=== PATIENT | female | born 1990 | race Caucasian/White ===

== ENCOUNTER 2024-11-06 23:50 | Emergency (ER) | payer SELFPAY ==
[2024-11-07] MEDS ORDERED: DIPHENHYDRAMINE 50 MG/ML VIAL ONE (00:40)
[2024-11-07] MEDS ORDERED: KETOROLAC 30 MG/ML INJ ONE (00:40)
[2024-11-07 00:41] LABS: Absolute Basophils 0.1 K/uL (0-0.5); Absolute Eosinophils 0.1 K/uL (0-0.5); Absolute Monocytes 1.1 K/uL (0.1-1.3); Absolute Neutrophil 7.6 K/uL (1.8-8.0); Basophils % 0.6 % (0-1.3); Eosinophils % 1.1 % (0-4.4); Hematocrit 39.5 % (36.0-45.0); Hemoglobin 13.1 g/dL (12.0-15.0); Lymphocytes % 31.1 % (15.3-44.8); MCH 29.8 pg (27.0-35.0); MCHC 33.3 g/dL (32.0-36.0); MCV 89.4 fL (80-100); MPV 7.3 fL (7.6-11.3); Monocytes % 8.9 % (3.3-12.3); Neutrophils % 58.3 % (41.7-73.7); Nucleated Red Blood Cells % 0.1 % (0-0); Platelets 305 thou/uL (152-406); RBC Red Blood Cell Count 4.42 M/uL (3.86-4.86)
[2024-11-07] MEDS ORDERED: NA CHLORIDE 0.9% 1,000 ML ONE (00:41)
[2024-11-07] MEDS ORDERED: METOCLOPRAMIDE 10 MG/2mL INJ ONE (00:41)
[2024-11-07 00:45] LABS: PT Prothrombin Time 11.9 SECONDS (9.4-12.5); Protime INR 1.06
[2024-11-07 00:57] LABS: Albumin/Globulin Ratio 0.9 (1.1-1.8); Alkaline Phosphatase 69 U/L (45-117); Anion Gap 9.1 mEq/L (5.0-15.0); BUN Blood Urea Nitrogen 15 mg/dL (7-18); Bicarbonate 26 mEq/L (21-32); Globulin 3.3 g/dL (2.3-3.5); Glomerular Filtration Rate 90 ml/min (=/>90); Glucose Level 108 mg/dL (74-106); NT PRO-BNP 7 pg/mL (<125); Potassium 4.1 mEq/L (3.5-5.1); Protein, Total 6.3 g/dL (6.4-8.2); Sodium Level 138 mEq/L (136-145)
[2024-11-07 00:59] LABS: ALT/SGPT < 14 U/L (13-56); AST/SGOT < 10 U/L (15-37); Bilirubin Direct < 0.2 mg/dL (0-0.2); Bilirubin Total < 0.2 mg/dL (0.2-1.0); C-Reactive Protein < 2.90 mg/L (<3.00); Troponin High Sensitivity < 3.0 pg/mL (<58.9)
--- NOTE | 2024-11-07 01:40 | RAD REPORT ---
EXAM: CT Head Without Intravenous Contrast CLINICAL HISTORY: The patient is 34 years old and is Female; dizzy TECHNIQUE: Axial computed tomography images of the head/brain without intravenous contrast. Sagittal and cor onal reformatted images were created and reviewed. This CT exam was performed using one or more of the following dose reduction techniques: automated exposure control, adjustment of the mA and/or kV according to patient size, and/or use of iterative reconstruction technique. COMPARISON: No relevant prior studies available. FINDINGS: BRAIN: Unremarkable. The iqbal-white matter differentiation is preserved . No hemorrhage. No s ignificant white matter disease. No edema. No extra-axial fluid collections. VENTRICLES: Unremarkable. No ventriculomegaly. BONES/JOINTS: No acute fracture. SOFT TISSUES: Unremarkable. SINUSES: Unremarkable as visualized. No acute sinusitis. MASTOID AIR CELLS: Unremarkable as visualized. No mastoid effusion. ORBITS: Unremarkable as visualized. IMPRESSION: No acute intracranial findings. Electronically signed by: Daisy Badillo MD 11/07/2024 01:31 AM [facility] Due to temporary technical issues with the PACS/[employer] reporting system, reports are being rohit d by the in-house radiologist without review as a courtesy to ensure prompt reporting the interpreting radiologist is fully responsible for the content of the report. Transcribed Date/Time: 11/07/2024 1:40 AM
[2024-11-07 03:29] LABS: Specific Gravity > 1.030 (1.005-1.030); Urine Bacteria 20-50 /HPF (<20); Urine Bilirubin NEGATIVE (Negative); Urine Blood Negative (Negative); Urine Clarity Extremely Turbid (Clear); Urine Color Yellow (Yellow); Urine Culture Reflex Order REFLEXED; Urine Glucose NEGATIVE (Negative); Urine Ketones NEGATIVE (Negative); Urine Micro Reflex YN NO BILL MICROSCOPIC; Urine Mucus 4+ /HPF (None Seen); Urine Nitrite 2+ (Negative); Urine Protein TRACE (Negative); Urine Urobilinogen Normal (Normal); Urine WBC Clump Rare /HPF (None Seen); Urine pH 6.5 (5.0-7.0)
[2024-11-07 03:35] LABS: Barbiturates NEGATIVE (NEGATIVE); Benzodiazepines NEGATIVE (NEGATIVE); Cocaine NEGATIVE (NEGATIVE); METHAMPHETAM POSITIVE (NEGATIVE); Methadone NEGATIVE (NEGATIVE); Opiates NEGATIVE (NEGATIVE); Phencyclidine NEGATIVE (NEGATIVE); THC Cannibis NEGATIVE (NEGATIVE)
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
[2024-11-07] MEDS ORDERED: CEPHALEXIN 250 MG CAP ONE (03:52)
[2024-11-07 04:32] VITALS: TEMP 98.2; O2SAT 97
[2024-11-07 04:38] VITALS: BP 121/74
--- NOTE | 2024-11-07 06:19 | RAD REPORT ---
EXAM DESCRIPTION: Chest Single View CLINICAL HISTORY: 34 years Female, CHEST PAIN TECHNIQUE: 1 view (Single frontal view of the chest) COMPARISON: None. FINDINGS: LINES AND TUBES: None. CARDIOVASCULAR STRUCTURES: Normal heart size. No pulmonary venous congestion. LUNGS: No confluent areas of acute consolidation. PLEURA: No layering pleural effusions. No pneumothorax. BONES: No acute osseous abnormality of the thorax. IMPRESSION: 1. No acute cardiopulmonary disease. Electronically signed by: Ashvin Salgado MD 11/07/2024 01:09 AM [facility] Due to temporary technical issues with the PACS/[employer] reporting system, reports are being rohit d by the in-house radiologist without review as a courtesy to ensure prompt reporting the interpreting radiologist is fully responsible for the content of the report. Transcribed Date/Time: 11/07/2024 6:19 AM
--- NOTE | 2024-11-15 11:15 | EKG ---
Test Date: 2024-11-06 Test Time: 23:47:22 Estate Planning Counselor: KIP MEASUREMENT RESULTS: Intervals: Rate: 82 [place]: 188 QRSD: 78 QT: 384 QTc: 448 [place]: P: 51 [place]: 188 QRS: 48 T: 58 INTERPRETIVE STATEMENTS: Normal sinus rhythm Normal ECG No previous ECG available for comparison Electronically Signed On 11-15-24 11:02:26 ROUTING MACHINE OPERATOR by Yg Urbina
== END 2024-11-07 03:59 | disposition home or self-care (01) ==
LOC: ER 23:50
DX: N39.0 Urinary tract infection, site not specified (principal); F15.90 Other stimulant use, unspecified, uncomplicated
CPT/HCPCS: 36415; 70450; 71045; 80048; 80076; 80307; 81001; 82077; 83735; 83880; 84439; 84443; 84484; 84703; 85025; 85610; 86140; 87077; 87086; 87088; 87186; 93005; 96374; 96375; 99284; J1200; J2765; J7030